=== PATIENT | male | born 1985 | race American Indian/Alaskan Native ===

== ENCOUNTER 2016-12-20 11:55 | Emergency (ER) | payer SELFPAY ==
[2016-12-20 12:16] VITALS: BP 145/96
[2016-12-20 12:57] LABS: Basophils % (Auto) 0.6 % (0.0-1.8); Eosinophils % (Auto) 2.7 % (0.0-4.3); Hematocrit 39.2 % (35.5-45.6); Hemoglobin 13.8 gm/dl (11.8-15.2); Mean Corpuscular HGB Conc 35 % (32-34); Mean Corpuscular Hemoglobin 31 pg (28-32); Mean Corpuscular Volume 88 fl (84-94); Platelet Count 260 K/mm3 (140-440); Red Blood Count 4.44 M/mm3 (3.65-5.03); Red Cell Distribution Width 12.2 % (13.2-15.2); White Blood Count 6.4 K/mm3 (4.5-11.0)
[2016-12-20] MEDS ORDERED: NACL 0.9% 1000 ML 1,000 ML IV ONE (12:59)
[2016-12-20] MEDS ORDERED: REGLAN IV ONE (12:59)
--- NOTE | 2016-12-20 13:00 | Emergency Department Report ---
ED General Adult HPI - General Chief complaint: Eye Problems Stated complaint: HEAD/BODY ACHES/EYE PAIN Time Seen by Provider: 12/20/16 12:33 Source: patient Mode of arrival: Ambulatory Limitations: No Limitations - History of Present Illness Initial comments: This is a 31-year-old male, who is transgender and identifies as female, previously unknown to me, who presents to the emergency department with left eye proptosis, pain. Patient reports that this happened overnight, and that she has been experiencing headache for the past week. There is some discomfort with extraocular movements, there is no loss of vision. There is no extremity weakness or numbness. There is no bladder or bowel retention or incontinence. There is no chest pain or shortness of breath. Proptosis is constant, and has no exacerbating or relieving factors. -: Gradual Location: eyes Quality: aching Consistency: constant Improves with: none Worsens with: none Associated Symptoms: headaches. denies: confusion, chest pain, cough, diaphoresis, fever/chills, loss of appetite, malaise, nausea/vomiting, rash, seizure, shortness of breath, syncope, weakness - Related Data Home Medications Medication Instructions Recorded Confirmed Last Taken No Known Home Medications [No 12/20/16 12/20/16 Unknown Reported Home Medications] Allergies Allergy/AdvReac Type Severity Reaction Status Date / Time No Known Allergies Allergy Unverified 12/20/16 12:13 ED Review of Systems ROS: Stated complaint: HEAD/BODY ACHES/EYE PAIN Other details as noted in HPI Eyes: eye pain ENT: denies: throat pain Respiratory: denies: orthopnea Cardiovascular: denies: chest pain Gastrointestinal: denies: abdominal pain Genitourinary: denies: dysuria Musculoskeletal: denies: back pain Skin: denies: lesions Neurological: headache Psychiatric: anxiety ED Past Medical Hx - Past Medical History Previous Medical History?: No - Surgical History Past Surgical History?: No - Social History Smoking Status: Current Every Day Smoker Substance Use Type: None - Medications Home Medications: Home Medications Medication Instructions Recorded Confirmed Last Taken Type No Known Home Medications [No 12/20/16 12/20/16 Unknown History Reported Home Medications] ED Physical Exam - General Limitations: No Limitations General appearance: alert, in no apparent distress - Head Head exam: Present: atraumatic, normocephalic - Eye Eye exam: Present: PERRL, EOMI, other (extraocular movements are intact bilaterally. The left eye is grossly proptotic. Visual acuity is intact to finger counting, color perception, reading at a close distance.). Absent: nystagmus - ENT ENT exam: Present: normal exam, normal orophraynx, mucous membranes moist, normal external ear exam - Neck Neck exam: Present: normal inspection, full ROM. Absent: tenderness, meningismus - Respiratory Respiratory exam: Present: normal lung sounds bilaterally. Absent: respiratory distress, wheezes, rales, rhonchi, stridor, chest wall tenderness - Cardiovascular Cardiovascular Exam: Present: regular rate, normal rhythm, normal heart sounds. Absent: bradycardia, tachycardia, irregular rhythm, systolic murmur, diastolic murmur, rubs, gallop - GI/Abdominal GI/Abdominal exam: Present: soft, normal bowel sounds. Absent: distended, tenderness, guarding, rebound, rigid, pulsatile mass - Rectal Rectal exam: Present: deferred - Extremities Exam Extremities exam: Present: normal inspection, full ROM, normal capillary refill. Absent: tenderness, pedal edema, joint swelling, calf tenderness - Back Exam Back exam: Present: normal inspection, full ROM. Absent: tenderness, CVA tenderness (R), CVA tenderness (L), muscle spasm, paraspinal tenderness, vertebral tenderness - Neurological Exam Neurological exam: Present: alert, oriented X3, normal gait, other (Extraocular movements intact. Tongue midline. No facial droop. Facial sensation intact to light touch in the V1, V2, V3 distribution bilaterally. 5 and 5 strength in 4 extremities.. Sensation is intact to light touch in 4 extremities.). Absent : motor sensory deficit - Psychiatric Psychiatric exam: Present: normal affect, normal mood - Skin Skin exam: Present: warm, dry, intact, normal color. Absent: rash ED Course Vital Signs 12/20/16 12:13 Temperature 98.2 F Pulse Rate 86 Respiratory 20 Rate Blood Pressure 145/96 O2 Sat by Pulse 99 Oximetry - Reevaluation(s) Reevaluation #1: 12/20/16 15:14 Differential diagnosis: Tumor, cancer/malignancy, abscess, mass lesion Assessment and plan: 31-year-old female with left-sided unilateral proptosis. An emergent CT scan of the brain and orbit are performed. Laboratory studies were obtained. The patient refused IV contrast study. Prior to interpretation of the CAT scans, the patient signed out AGAINST MEDICAL ADVICE. The patient is alert and oriented 3, exhibits decision-making capacity, and is free from distracting injury. The risks of leaving were discussed with the patient and her sister, including , disability, loss of vision, loss of quality of life , were discussed extensively with the patient and her sister, both of whom verbalized understanding. In addition, after the CT scan was interpreted, I contacted the patient's listed phone number, and it was found to be disconnected. I then contacted the patient's sister, Mrs. Amy Brown, and instructed the patient's sister to inform the patient that she should return to the ER as soon as possible for further evaluation and management. The AMA conversation is witnessed by the patient's sister, Nayely Mcnally nurse , and Amy Weeks , nurse. Patient and family are instructed that they can return to the ER right away if and when they change their mind, at the ER is open 24 hours/day, 7 days a week, and that it never closes. 12/20/16 15:17 ED Medical Decision Making - Lab Data Result diagrams: 12/20/16 12:41 12/20/16 12:41 Vital Signs 12/20/16 12:13 Temperature 98.2 F Pulse Rate 86 Respiratory 20 Rate Blood Pressure 145/96 O2 Sat by Pulse 99 Oximetry Lab Results 12/20/16 12/20/16 12/20/16 Range/Units 12:33 12:41 12:41 WBC 6.4 (4.5-11.0) K/mm3 RBC 4.44 (3.65-5.03) M/mm3 Hgb 13.8 (11.8-15.2) gm/dl Hct 39.2 (35.5-45.6) % MCV 88 (84-94) fl MCH 31 (28-32) pg MCHC 35 H (32-34) % RDW 12.2 L (13.2-15.2) % Plt Count 260 (140-440) K/mm3 Lymph % (Auto) 32.9 (13.4-35.0) % [place] % (Auto) 8.3 H (0.0-7.3) % Eos % (Auto) 2.7 (0.0-4.3) % Baso % (Auto) 0.6 (0.0-1.8) % Lymph # 2.1 (1.2-5.4) K/mm3 [place] # 0.5 (0.0-0.8) K/mm3 Eos # 0.2 (0.0-0.4) K/mm3 Baso # 0.0 (0.0-0.1) K/mm3 Seg Neutrophils % 55.5 (40.0-70.0) % Seg Neutrophils # 3.6 (1.8-7.7) K/mm3 Sodium 135 L (137-145) mmol/L Potassium 3.8 (3.6-5.0) mmol/L Chloride 97.0 L (98-107) mmol/L Carbon Dioxide 25 (22-30) mmol/L Anion Gap 17 mmol/L BUN 11 (9-20) mg/dL Creatinine 0.7 L (0.8-1.5) mg/dL Estimated GFR > 60 ml/min BUN/Creatinine Ratio 15.71 % Glucose 105 H (75-100) mg/dL Calcium 9.2 (8.4-10.2) mg/dL Total Creatine Kinase (55-170) units/L Urine Color Yellow (Yellow) Urine Turbidity Clear (Clear) Urine pH 8.0 H (5.0-7.0) Ur Specific [place] 1.023 (1.003-1.030) Urine Protein 30 mg/dl (Negative) mg/dL Urine Glucose (UA) Neg (Negative) mg/dL Urine Ketones Neg (Negative) mg/dL Urine Blood Neg (Negative) Urine Nitrite Neg (Negative) Urine Bilirubin Neg (Negative) Urine Urobilinogen < 2.0 (<2.0) mg/dL Ur Leukocyte Esterase Neg (Negative) Urine WBC (Auto) 1.0 (0.0-6.0) /HPF Urine RBC (Auto) 2.0 (0.0-6.0) /HPF Urine Mucus 1+ /HPF 12/20/16 Range/Units 12:41 WBC (4.5-11.0) K/mm3 RBC (3.65-5.03) M/mm3 Hgb (11.8-15.2) gm/dl Hct (35.5-45.6) % MCV (84-94) fl MCH (28-32) pg MCHC (32-34) % RDW (13.2-15.2) % Plt Count (140-440) K/mm3 Lymph % (Auto) (13.4-35.0) % [place] % (Auto) (0.0-7.3) % Eos % (Auto) (0.0-4.3) % Baso % (Auto) (0.0-1.8) % Lymph # (1.2-5.4) K/mm3 [place] # (0.0-0.8) K/mm3 Eos # (0.0-0.4) K/mm3 Baso # (0.0-0.1) K/mm3 Seg Neutrophils % (40.0-70.0) % Seg Neutrophils # (1.8-7.7) K/mm3 Sodium (137-145) mmol/L Potassium (3.6-5.0) mmol/L Chloride (98-107) mmol/L Carbon Dioxide (22-30) mmol/L Anion Gap mmol/L BUN (9-20) mg/dL Creatinine (0.8-1.5) mg/dL Estimated GFR ml/min BUN/Creatinine Ratio % Glucose (75-100) mg/dL Calcium (8.4-10.2) mg/dL Total Creatine Kinase 118 (55-170) units/L Urine Color (Yellow) Urine Turbidity (Clear) Urine pH (5.0-7.0) Ur Specific [place] (1.003-1.030) Urine Protein (Negative) mg/dL Urine Glucose (UA) (Negative) mg/dL Urine Ketones (Negative) mg/dL Urine Blood (Negative) Urine Nitrite (Negative) Urine Bilirubin (Negative) Urine Urobilinogen (<2.0) mg/dL Ur Leukocyte Esterase (Negative) Urine WBC (Auto) (0.0-6.0) /HPF Urine RBC (Auto) (0.0-6.0) /HPF Urine Mucus /HPF - Radiology Data Radiology results: report reviewed, image reviewed Noncontrast CT scan of the orbit demonstrates a 3 x 2 x 2.2 cm heterogeneous soft tissue left intraorbital mass with mild inferior displacement of the optic nerve and left proptosis. The eye globes are otherwise symmetric with orthotopic position of the lenses. The remainder of the orbital contents are within normal limits. There is mild sinusitis. Left proptosis with large heterogeneous left intraorbital soft tissue mass superiorly, which is not separable from superior rectus muscle, neoplasm versus lymphoma or neural origin tumor, such as schwannoma also a possibility Critical care attestation.: If time is entered above; I have spent that time in minutes in the direct care of this critically ill patient, excluding procedure time. ED Disposition Clinical Impression: Proptosis Disposition: LEFT AGAINST MEDICAL ADVICE Is pt being admited?: No Does the pt Need Aspirin: No Condition: Undetermined Referrals: PRIMARY CARE, [Primary Care Provider] - 3-5 Days Forms: AMA Form
[2016-12-20 13:15] LABS: Anion Gap 17 mmol/L; BUN/Creatinine Ratio 15.71; Blood Urea Nitrogen 11 mg/dL (9-20); Calcium 9.2 mg/dL (8.4-10.2); Carbon Dioxide 25 mmol/L (22-30); Glucose 105 mg/dL (75-100); Potassium 3.8 mmol/L (3.6-5.0); Sodium 135 mmol/L (137-145)
[2016-12-20 13:20] LABS: Bilirubin,Urine NEG (Negative); Blood,Urine NEG (Negative); Ketones,Urine NEG (Negative); Leukocyte Esterase,Urine NEG (Negative); Mucus,Urine 1+ /HPF; Nitrite,Urine NEG (Negative); Urobilinogen,Urine < 2.0 mg/dL (<2.0)
--- NOTE | 2016-12-20 14:56 | Cat Scan Report ---
CT ORBIT/EAR/FOSSA WITHOUT CONTRAST INDICATION: Left proptosis. COMPARISON: None similar at this institution. FINDINGS: Noncontrast axial, sagittal and coronal CT reconstructions through the orbits demonstrate approximately 3.1 x 2.4 x 2.2 cm heterogeneous soft tissue left intraorbital mass with possible mild inferior displacement of the optic nerve and also left proptosis. Eye globes otherwise symmetric with orthotopic position of the lenses. Remainder orbital contents appear within normal limits. Intact orbital bony margins. Moderate right and mild left maxillary sinus mucosal thickening. Mild left ethmoid sinusitis. Grossly clear remainder imaged paranasal sinuses and mastoid air cells. CONCLUSION: 1. Left proptosis with a large, heterogeneous left intraorbital soft tissue mass superiorly, inseparable from the superior rectus muscle, as described. Of various possibilities, an underlying neoplasm as lymphoma or a neural origin tumor as schwannoma remain to be excluded. Though limited due to lack of IV contrast, other possibilities as vascular malformation/hemangioma, lymphangioma, meningioma or even pseudotumor remain to be excluded. Its intracranial relationship as well, if any, also cannot be further evaluated on this unenhanced exam. 2. Other findings, including sinusitis and otherwise anatomically preserved eye globes, as described. Ophthalmologic correlation and further evaluation with dedicated contrast-enhanced orbits/brain MRI imaging may be considered, as appropriate. Thank you for the opportunity to participate in this patient's care.
--- NOTE | 2016-12-20 14:58 | Cat Scan Report ---
CT HEAD WITHOUT CONTRAST INDICATION: Left proptosis. COMPARISON: None similar. FINDINGS: Noncontrast head CT demonstrates normal ventricles and sulci. No acute infarct, hemorrhage, mass effect or midline shift. No abnormal extra axial fluid collections. Normal posterior fossa with preserved basilar cisterns. Moderate right and mild left maxillary sinus mucosal thickening inferiorly. Slight left ethmoid sinusitis as well. Clear remainder imaged paranasal sinuses and mastoid air cells. Normal calvarium and scalp. Left proptosis noted with an approximately 3.2 x 2.5 cm heterogeneous intraorbital soft tissue mass superiorly, not excluded involving the superior rectus. Remainder imaged optic contents appear within normal limits. Eye globes also otherwise appear intact. CONCLUSION: 1. Left proptosis with a large heterogeneous intraorbital soft tissue mass superiorly, as described. An underlying tumor/neoplasm, including lymphoma would remain to be excluded on this limited, unenhanced exam, amongst others. Please also refer to accompanying dedicated orbit CT report. 2. No acute intracranial CT abnormality. Sinusitis. Thank you for the opportunity to participate in this patient's care.
== END 2016-12-20 14:39 | disposition left against medical advice (07) ==
LOC: ED 11:55
DX: H05.20 Unspecified exophthalmos (principal); F17.200 Nicotine dependence, unspecified, uncomplicated
CPT/HCPCS: 36415; 70450; 70480; 80048; 81001; 82550; 85025; 96361; 96374; 99284; J2765; J7030